=== PATIENT | female | born 1945 | race Caucasian/White ===

== ENCOUNTER 2017-09-11 07:22 | Day surgery (SDC) | payer MEDICARE ==
[2017-08-11 14:13] VITALS: BMI 28.9
[2017-09-11] MEDS ORDERED: Lactated Ringer's 1,000 ML IV ONE (08:11)
[2017-09-11] MEDS ORDERED: Lidocaine 1% 5ml Abboject IV ONE (09:50)
[2017-09-11] MEDS ORDERED: Midazolam 2 MG/2 ML VIAL ONE (09:50)
[2017-09-11] MEDS ORDERED: Propofol 10 mg/ml Inj (20 ML) ONE (09:50)
[2017-09-11] MEDS ORDERED: Lidocaine 2% Jelly (5 ml) TOP ONE (09:56)
[2017-09-11] MEDS ORDERED: Lidocaine 2% Jelly (Uro-Jet) ONE (09:57)
[2017-09-11] MEDS ORDERED: cefTRIAXone (Rocephin) 1 gm Inj ONE (10:00)
[2017-09-11] MEDS ORDERED: Lactated Ringer's 1,000 ML IV SCH (10:30)
[2017-09-11 10:45] VITALS: RESP 18; O2SAT 100
[2017-09-11] MEDS ORDERED: Oxycodone/Acetaminophen 5/325 mg Tab PO ONE ×2 (12:28→12:30)
[2017-09-11 13:11] VITALS: BP 132/78; PULSE 62; TEMP 97.6
--- NOTE | 2017-09-11 21:06 | OP ---
PROCEDURE DATE: 09/11/2017 SURGEON: Caden Solomon MD ANESTHESIOLOGIST: Kvng Arellano MD ANESTHESIA: General LMA PREOPERATIVE DIAGNOSIS: Bladder calculus. POSTOPERATIVE DIAGNOSIS: Bladder calculus. PROCEDURE PERFORMED ON THE PATIENT: Cystoscopy with laser lithotripsy and bladder stone. DESCRIPTION OF PROCEDURE: The patient was placed in the operating room table in dorsal lithotomy position, the area of the groin was draped and prepped in a sterile manner. She was given general anesthesia. At this time, using a number 21 cystoscope, entering into bladder atraumatically, and on the left lateral bladder neck to base of bladder area, there was noted to be a rather large stone adherent to the skin of the bladder. At this time, as I began to laze the stone, it became apparent that there was some monofilament sutures that are in this area appears to be Prolene in nature, it is a blue color. I tried,after the stone was easily and successfully removed from this area, try to use the laser to burn some other Prolene, but it would not happen and it only appeared to be melting it slightly. So, I could see the urethral orifice on the left side which was separate from the area of this Prolene exposure. At this time, I would remove all the stones and perhaps in the future when appropriate equipment is secured then come back and try to cut those Prolene sutures out. POSTOPERATIVE CONDITION: The patient was taken from the operating room in good condition. Caden Solomon MD
== END 2017-09-11 13:20 | disposition home or self-care (01) ==
LOC: H.OPSURG 07:22
PROVIDERS: ATTEND Urology
DX: N21.0 Calculus in bladder (principal); J45.909 Unspecified asthma, uncomplicated; E11.9 Type 2 diabetes mellitus without complications; E78.5 Hyperlipidemia, unspecified; I10 Essential (primary) hypertension
CPT/HCPCS: 52318; 82355; 82948; J0696; J2250; J2704; J2765; J3010; J7120

== ENCOUNTER 2017-10-02 08:18 | Day surgery (SDC) | payer MEDICARE ==
[2017-10-02] MEDS ORDERED: Chlorhexidine Gluconate 2OZ GEL TP ONE (08:40)
[2017-10-02] MEDS ORDERED: cefTRIAXone (Rocephin) 1 gm Inj ONE (08:40)
[2017-10-02] MEDS ORDERED: cefTRIAXone (Rocephin) 1 gm Inj IM ONE (09:20)
[2017-10-02 09:26] VITALS: BMI 28.7
[2017-10-02] MEDS ORDERED: Propofol 10 mg/ml Inj (20 ML) ONE (10:00)
[2017-10-02] MEDS ORDERED: Lidocaine 2% Jelly (5 ml) TOP ONE (10:00)
[2017-10-02] MEDS ORDERED: Lidocaine 1% 5ml Abboject IV ONE (10:00)
--- NOTE | 2017-10-02 10:57 | CARD ---
APPROVED REPORT EKG Measurement Heart [id number] <Conclusion> Normal sinus rhythm Nonspecific T wave abnormality Abnormal ECG
[2017-10-02] MEDS ORDERED: Lactated Ringer's 1,000 ML IV ONE (11:00)
[2017-10-02] MEDS ORDERED: HYDROmorphone 0.5 mg/0.5 ml ISec ONE (11:45)
[2017-10-02] MEDS ORDERED: HYDROmorphone 0.5 mg/0.5 ml ISec IVP PRN (12:21)
[2017-10-02 13:23] VITALS: O2SAT 99
[2017-10-02 13:35] VITALS: BP 154/86; PULSE 65; RESP 18; TEMP 97.7
--- NOTE | 2017-10-02 23:46 | OP ---
PROCEDURE DATE: 10/02/2017 PREOPERATIVE DIAGNOSIS: Foreign body in bladder. POSTOPERATIVE DIAGNOSIS: Foreign body in bladder. PROCEDURE PERFORMED: Cystoscopy with excision of foreign of the bladder. DESCRIPTION OF PROCEDURE: The patient was placed on the operating room table in a dorsal lithotomy position, given general anesthesia. The area of the groin was draped and prepped in a sterile manner. Using #22 cystoscope, I entered into the bladder atraumatically, took some identifying photos of the foreign body left in the area of the bladder neck on the left side. Using some Endoscissors, I was able to go into the working channel and snipped the exposed portions of the foreign body, but it appeared the more I tugged on it, the more it would come out. So my final decision at this point was to cut as close as I can to the bladder wall all the fragmented edges that were exposed, and once this was done, then I used the Bugbee cautery to cauterize the bleeders that were incurred by the resection and cutting. At the end of the procedure, the ureteral orifices were identified, and at that point, the cystoscope was removed. The patient then was taken from the operating room in good condition. Caden Solomon MD
== END 2017-10-02 14:05 | disposition home or self-care (01) ==
LOC: H.OPSURG 08:18
PROVIDERS: ATTEND Urology
DX: T19.1XXA Foreign body in bladder, initial encounter (principal)
CPT/HCPCS: 52310; 82948; 88300; 88304; 93005; J0696; J1170; J2704; J2765; J7030; J7120